=== PATIENT | male | born 1990 | race Caucasian/White ===

== ENCOUNTER 2016-11-25 17:25 | Emergency (ER) | payer MEDICAID, OTHER ==
[~2016-11-25] VITALS: Ht 188 cm; Wt 76.0 kg
[2016-11-25 17:27] VITALS: Ht 188 cm; Wt 76.0 kg
--- NOTE | 2016-11-25 19:35 | RADRPT ---
PROCEDURE: XR Right Foot. CLINICAL INDICATION: Pain. TECHNIQUE: AP, lateral and oblique views of the right foot was obtained. The images were reviewed on a PACS workstation. COMPARISON: None. FINDINGS: There are no fractures. Joint relationships are maintained. Bone mineralization is within normal l imits. Soft tissues are unremarkable. IMPRESSION: No acute abnormality. RPTAT: [facility] .Silvestre Duvall MD, Date Time Electronically viewed and signed by .Silvestre Duvall MD, on 11/25/2016 19:35 .K/
--- NOTE | 2016-11-25 19:36 | RADRPT ---
PROCEDURE: XR Right Ankle. CLINICAL INDICATION: Trauma. Pain. TECHNIQUE: Three views of the right ankle are available for review COMPARISON: None available FINDINGS: There are no fractures. Joint relationships are maintained. Ankle mortise is intact. Bone mineral ization is within normal limits. Soft tissues are unremarkable. IMPRESSION: 1. No acute abnormality. RPTAT: [facility] .Silvestre Duvall MD, Date Time Electronically viewed and signed by .Silvestre Duvall MD, on 11/25/2016 19:36 .K/
[2016-11-25] MEDS ORDERED: HYDR-902 PO (20:18)
[2016-11-25] MEDS ORDERED: IBUP800T25 PO (20:18)
--- NOTE | 2016-11-25 20:21 | ERD ---
ER Documentation Chief Complaint Date/Time DATE: 11/25/16 TIME: 20:20 Chief Complaint right foot pain HPI This is a 18-year-old male who was at the gym he stepped on a plate on the ground causing his foot to invert he is complaining of pain along the deltoid ligament area of the foot. Pain is described as sharp but mild worsened movement better with rest. There is some swelling in this area as well ROS All systems reviewed and are negative except as per history of present illness. Medications Home Meds Active Scripts Hydrocodone/Acetaminophen ([place] 10-325 Tablet) 1 Each Tablet, 1 TAB PO Q6H Y for PAIN, #20 TAB Prov:LEKKOS,APOSTOLOS A. DO 11/25/16 Ibuprofen* (Motrin*) 800 Mg Tab, 800 MG PO Q6H Y for PAIN AND OR ELEVATED TEMP, #30 TAB Prov:LEKKOS,APOSTOLOS A. DO 11/25/16 PMhx/Soc History of Surgery: Yes (BILATERAL ) Hx Alcohol Use: No Hx Substance Use: No (MARIJUANA OCCASSIONALLY) Hx Tobacco Use: No Smoking Status: Never smoker FmHx Family History: No coronary disease Physical Exam Vitals Vital Signs Date Time Temp Pulse Resp B/P Pulse Ox O2 Delivery O2 Flow Rate FiO2 11/25/16 17:27 96.6 52 16 117/56 99 Physical Exam Const: Well-developed, well-nourished Head: Atraumatic, normocephalic Eyes: Normal Conjunctiva, PERRLA, EOMI, normal sclera, no nystagmus ENT: Normal External Ears, Nose and Mouth, moist mucus membranes. Neck: Full range of motion. No meningismus, no lymphadenopathy. Resp: Clear to auscultation bilaterally, no wheezing, rhonchi, rales Cardio: Regular rate and rhythm, no murmurs, S1 S2 present Abd: Soft, non tender x 4, non distended. Normal bowel sounds, no guarding or rebound, no pulsitile abdominal masses or bruits Skin: No petechiae or rashes, no ecchymosis , no maculopapular rash Back: No midline or flank tenderness Ext: No cyanosis, or edema, FROM x 4, normal inspection, neurovascularly intact x 4, right foot has some swelling on the lateral aspects following the deltoid ligament. There is no instability there is minimal distal lateral fibular pain neurovascularly intact Neur: Awake and alert, STR 5/5 x 4, sensation intact x 4, no focal findings, cerebellum intact Psych: Normal Mood and Affect Procedures/MDM Ankle x-rays negative per radiology Foot x-ray is negative per radiology Crutches and posterior ankle splint will be applied. Departure Diagnosis: Primary Impression: Ankle sprain Encounter type: initial encounter Involved ligament of ankle: deltoid ligament Laterality: right Qualified Code: S93.421A - Sprain of deltoid ligament of right ankle, initial encounter Condition: Stable Patient Instructions: Treating Ankle Sprains DEMETRIUS INIGUEZ DO Nov 25, 2016 20:21
[2016-11-25 21:14] VITALS: BP 120/55; PULSE 75; RESP 20; TEMP 98.4
== END 2016-11-25 21:16 | disposition home or self-care (01) ==
LOC: FTE 17:25
DX: S93.421A Sprain of deltoid ligament of right ankle, initial encounter (principal); X50.1XXA Overexertion from prolonged static or awkward postures, initial encounter; Y92.89 Other specified places as the place of occurrence of the external cause
CPT/HCPCS: 73610; 73630; Z7502